=== PATIENT | female | born 1955 | race Caucasian/White ===

== ENCOUNTER 2019-08-09 18:29 | Inpatient (IN) | payer MEDICAID, SELFPAY ==
[2019-08-09 18:31] VITALS: BP 92/68; PULSE 96; RESP 16; TEMP 36.4; O2SAT 96; BMI 52.7
--- NOTE | 2019-08-09 18:33 | XR_ITS ---
WS: [id number] CHEST XRAY TECHNIQUE: Portable chest. CLINICAL INFORMATION: fever COMPARISON: None. FINDINGS: Heart: Cardiomegaly. Shallow inspiration. Lungs: Lungs are clear. No consolidation or pleural effusion. Bones: Normal visualized bony structures. Cholecystectomy clips. XR/XR chest 1V portable [id number] IMPRESSION: Cardiomegaly. No acute parenchymal infiltrates. No acute chest findings.
--- NOTE | 2019-08-09 18:46 | ED_ITS ---
HPI - Altered Mental Status General: Chief Complaint: Altered Mental Status Stated Complaint: ams Time Seen by Provider: 08/09/19 18:33 Source: patient and EMS Mode of arrival: EMS Limitations: no limitations History of Present Illness: HPI narrative: 64-year-old female here from [facility]pc in [facility]. Per the fpc patient has a normal mental status of a 10-year-old and typically is orientated to self and place. Per fpc patient was diagnosed with UTI 1 week ago and has had low blood pressures today along with generalized weakness and refusing to get out of bed. They states she is also had mood swings. Patient here is able answer my questions appropriately and seems to be at her baseline and is oriented to self and place and disoriented to time which is her normal. Her blood pressure here is 92/68. Denies any abdominal pain or headache. Review of Systems Const: Denies: fever(s), chills, body aches or change in appetite Eyes: Denies: blurry vision or eye discomfort ENMT: Denies: throat pain or dental pain Card: Denies: chest pain Resp: Denies: dyspnea GI: Denies: abdominal pain, nausea, vomiting or diarrhea : Denies: dysuria Musc: Denies: neck pain or back pain Skin/Breast: Denies: rash Neuro: Reports: weakness in extremities Psych: Reports: mood swings Carl/Lymph: Denies: easy bruising All/Imm: Denies: urticaria PFSH ED PFSH: Social History Smoking and tobacco status: unknown if ever smoked Physical Exam Const: COMMON NORMALS: no acute distress NUTRITIONAL APPEARANCE: obese ORIENTATION/CONSCIOUSNESS: Yes oriented to person and Yes oriented to place; not oriented to time HENMT: COMMON NORMALS: normocephalic and atraumatic HEAD & SCALP: normocephalic and atraumatic Eye: COMMON NORMALS: Equal, round and reactive pupils present and EOMs intact bilaterally PUPIL: Yes Equal, round and reactive pupils present Neck/C-Spine: COMMON NORMALS: full ROM and supple Chest: COMMONS NORMALS: normal inspection of the chest and normal palpation of entire chest wall Resp: COMMON NORMALS: normal respiratory effort, No retractions, No use of accessory muscles and clear to auscultation bilaterally AUSCULTATION: clear to auscultation bilaterally Cardio: COMMON NORMALS: regular rate, regular rhythm and No murmurs present (Cardio) RATE: regular rate RHYTHM: regular rhythm GI: COMMON NORMALS: Normal to inspection, nondistended, normoactive bowel sounds present, Soft to palpation, non-tender and no masses PALPATION: Yes Soft to palpation Extremity: COMMON NORMALS: normal to inspection and full ROM Neuro: COMMON NORMALS: moves all extremities and no focal motor deficits SENSORIUM/ORIENTATION: Yes oriented to person, Yes oriented to place and No oriented to time Psych: COMMON NORMALS: mental status grossly normal, Normal thought process present and cooperative THOUGHT PROCESS: Normal thought process present Skin: COMMON NORMALS: no rashes or lesions noted and no wounds GENERAL SKIN EXAM: no rashes or lesions noted Course Vital Signs: Vital signs: Vital Signs Temperature 97.6 F 08/09/19 18:31 Pulse Rate 118 H 08/09/19 20:07 Respiratory Rate 16 08/09/19 20:07 Blood Pressure 109/80 08/09/19 20:07 Pulse Oximetry 99 08/09/19 20:07 MDM - Altered Mental Status MDM Narrative: Medical decision making narrative: Patient presents here with acute cystitis from [facility]. She is failed treatment there. Patient was slightly hypotensive upon arrival but blood pressure is much improved here. Patient given IV antibiotics. Patient's lactate level here is normal is no signs of sepsis. I spoke to hospitalist and will admit at this time. Lab Data: Labs: Lab Results 08/09/19 08/09/19 08/09/19 Range/Units 19:17 19:17 19:17 WBC 8.9 (4.0-10.0) 10^3/ uL RBC 3.14 L (4.1-5.3) 10^6/u L Hgb 10.2 L (11.5-15.3) g/dL Hct 31.6 L (37.0-47.0) % MCV 100.6 H (81-99) fL MCH 32.5 (28.0-34.0) pg MCHC 32.3 (30.0-36.0) g/dL RDW 15.6 H (12.1-15.1) % Plt Count 212 (130-400) 10^3/c mm MPV 11.7 H (7.4-10.4) fL Neut % (Auto) 53.5 % Lymph % (Auto) 26.7 % Mineral % (Auto) 17.3 % Eos % (Auto) 0.7 % Baso % (Auto) 0.1 % Neut # (Auto) 4.7 (1.8-7.7) 10^3/u L Lymph # (Auto) 2.4 (0.8-4.8) 10^3/u L Mineral # (Auto) 1.5 H (0.2-0.9) 10^3/u L Eos # (Auto) 0.1 (0.0-0.8) 10^3/u L Baso # (Auto) 0.0 (0.0-0.1) 10^3/u L Nucleated RBC % (a uto) 0 % Nucleated RBCs # 0.0 /100WBC Sodium 138 (136-145) mmol/L Potassium 4.6 (3.5-5.1) mmol/L Chloride 101 (98-107) mmol/L Carbon Dioxide 22 (22-29) mmol/L Anion Gap 19.6 H (5-19) BUN 33 H (8-23) mg/dL Creatinine 2.3 H (0.5-0.9) mg/dL GFR Calculation 21.3 L (90-130) mL/min Glucose 146 H (65-115) mg/dL Calculated Osmolal ity 286 (285-295) mOsm/k g Lactate 2.1 (0.5-2.2) mmol/L Calcium 9.1 (8.5-10.5) mg/dL Total Bilirubin 0.2 (0.15-1.2) mg/dL AST 16 (0-32) U/L ALT 10 (0-33) U/L Alkaline Phosphata se 71 (35-105) IU/L Total Protein 6.3 L (6.6-8.7) g/dL Albumin 3.2 L (3.5-5.2) g/dL Globulin 3.1 (1.3-4.6) g/dL Urine Color (Yellow) Urine Appearance (CLEAR) Urine pH (5-7) Ur Specific Gravit y (1.005-1.030) Urine Protein (Negative) Urine Glucose (UA) (Normal) Urine Ketones (Negative) Urine Blood (Negative) Urine Nitrate (Negative) Urine Bilirubin (NEGATIVE) Urine Urobilinogen (Negative) mg/dL Ur Leukocyte Delfina ase (Negative) Urine RBC (0-2) /hpf Urine WBC (0-5) /hpf Ur Squamous Epith Cells (0-5) Urine Bacteria (NONE) 08/09/19 Range/Units 20:00 WBC (4.0-10.0) 10^3/ uL RBC (4.1-5.3) 10^6/u L Hgb (11.5-15.3) g/dL Hct (37.0-47.0) % MCV (81-99) fL MCH (28.0-34.0) pg MCHC (30.0-36.0) g/dL RDW (12.1-15.1) % Plt Count (130-400) 10^3/c mm MPV (7.4-10.4) fL Neut % (Auto) % Lymph % (Auto) % Mineral % (Auto) % Eos % (Auto) % Baso % (Auto) % Neut # (Auto) (1.8-7.7) 10^3/u L Lymph # (Auto) (0.8-4.8) 10^3/u L Mineral # (Auto) (0.2-0.9) 10^3/u L Eos # (Auto) (0.0-0.8) 10^3/u L Baso # (Auto) (0.0-0.1) 10^3/u L Nucleated RBC % (a uto) % Nucleated RBCs # /100WBC Sodium (136-145) mmol/L Potassium (3.5-5.1) mmol/L Chloride (98-107) mmol/L Carbon Dioxide (22-29) mmol/L Anion Gap (5-19) BUN (8-23) mg/dL Creatinine (0.5-0.9) mg/dL GFR Calculation (90-130) mL/min Glucose (65-115) mg/dL Calculated Osmolal ity (285-295) mOsm/k g Lactate (0.5-2.2) mmol/L Calcium (8.5-10.5) mg/dL Total Bilirubin (0.15-1.2) mg/dL AST (0-32) U/L ALT (0-33) U/L Alkaline Phosphata se (35-105) IU/L Total Protein (6.6-8.7) g/dL Albumin (3.5-5.2) g/dL Globulin (1.3-4.6) g/dL Urine Color Yellow (Yellow) Urine Appearance Cloudy (CLEAR) Urine pH 5 (5-7) Ur Specific Gravit y 1.015 (1.005-1.030) Urine Protein Trace (Negative) Urine Glucose (UA) Norm (Normal) Urine Ketones 1+ H (Negative) Urine Blood 3+ H (Negative) Urine Nitrate Negative (Negative) Urine Bilirubin Neg (NEGATIVE) Urine Urobilinogen Norm (Negative) mg/dL Ur Leukocyte Delfina ase 2+ H (Negative) Urine RBC 15-25 H (0-2) /hpf Urine WBC 55-80 H (0-5) /hpf Ur Squamous Epith Cells 0-4 H (0-5) Urine Bacteria 4+ H (NONE) Imaging Data^: CXR: Attestation: I personally reviewed and interpreted this imaging study as follows: My impression: no acute abnormality CT Head: Attestation: I personally reviewed and interpreted this imaging study as follows: Radiologist's impression: Signed Patient: Tori Rand Unit #: [id number] : 1955 Acc t#:[id number] Age/Sex: 64 / F ADM Date: 08/09/19 Loc: ER Room/Bed: Attending Dr: Ordering Provider/Ordering MD: Fady Cantu MD Date of Service: 08/09/19 Procedure(s): CT head wo con* [id number] Accession Number(s): [id number] Report Number: [id number] PROCEDURE INFORMATION: Exam: CT Head Without Contrast Exam date and time: 08/09/2019 7:39 PM Age: 64 years old Clinical indication: Altered mental status/memory loss; Additional info: Injury TECHNIQUE: Imaging protocol: Computed tomography of the head without contrast. Radiation optimization: All CT scans at this facility use at least one of these dose optimization techniques: automated exposure control; mA and/or kV adjustment per patient size (includes targeted exams where dose is matched to clinical indication); or iterative reconstruction. COMPARISON: No relevant prior studies available. FINDINGS: Large area of low-density in right occipital lobe is most compatible with subacute to old infarction; in the peripheral portion of this abnormality there are serpentine areas of increased density which are most compatible with sequela of laminar necrosis. There is prominent low density in the bilateral periventricular white matter which may represent chronic small vessel ischemic disease in the appropriate clinical setting. The possibility of superimposed acute infarctions cannot be excluded; consider MRI brain (including diffusion images) for further assessment if clinically warranted and if patient has no contraindication to MRI. There are prominent intracranial arterial calcifications. There is moderate cerebral cortical volume loss. Ventricles do not appear significantly dilated. No depressed calvarial fracture is demonstrated. Prominent opacification in visualized left mastoid air cells and left middle ear cavity may indicate fluid from inflammation/infection. Visualized paranasal sinuses and right mastoid air cells demonstrate no significant opacification. CT/CT head wo con* [id number] IMPRESSION: Probable prominent chronic ischemic changes as discussed above. Prominent opacification in visualized left mastoid air cells and left middle ear cavity may indicate fluid from inflammation/infection. Total DLP: 744.23 mGy-cm Discharge Plan Discharge Patient Disposition: Admitted As Inpatient Clinical Impression: Acute cystitis Qualifiers: Hematuria presence: without hematuria Qualified Code(s): N30.00 - Acute cystitis without hematuria Condition: Stable Coding Level of Care Code ED [employer] Deputy [employer] for [employer] Fwd Exam Comprehensive
[2019-08-09 18:49] VITALS: BP 92/68; PULSE 98; RESP 18; O2SAT 99
--- NOTE | 2019-08-09 19:14 | CTR_ITS ---
PROCEDURE INFORMATION: Exam: CT Head Without Contrast Exam date and time: 08/09/2019 7:39 PM Age: 64 years old Clinical indication: Altered mental status/memory loss; Additional info: Injury TECHNIQUE: Imaging protocol: Computed tomography of the head without contrast. Radiation optimization: All CT scans at this facility use at least one of these dose optimization techniques: automated exposure control; mA and/or kV adjustment per patient size (includes targeted exams where dose is matched to clinical indication); or iterative reconstruction. COMPARISON: No relevant prior studies available. FINDINGS: Large area of low-density in right occipital lobe is most compatible with subacute to old infarction; in the peripheral portion of this abnormality there are serpentine areas of increased density which are most compatible with sequela of laminar necrosis. There is prominent low density in the bilateral periventricular white matter which may represent chronic small vessel ischemic disease in the appropriate clinical setting. The possibility of superimposed acute infarctions cannot be excluded; consider MRI brain (including diffusion images) for further assessment if clinically warranted and if patient has no contraindication to MRI. There are prominent intracranial arterial calcifications. There is moderate cerebral cortical volume loss. Ventricles do not appear significantly dilated. No depressed calvarial fracture is demonstrated. Prominent opacification in visualized left mastoid air cells and left middle ear cavity may indicate fluid from inflammation/infection. Visualized paranasal sinuses and right mastoid air cells demonstrate no significant opacification. CT/CT head wo con* [id number] IMPRESSION: Probable prominent chronic ischemic changes as discussed above. Prominent opacification in visualized left mastoid air cells and left middle ear cavity may indicate fluid from inflammation/infection. Total DLP: 744.23 mGy-cm Radiation Dose CTDIVOL = (mGy): DLP = 744.23 (mGy-cm)
[2019-08-09 19:26] LABS: Basophils % 0.1 %; Eosinophils # 0.1 10^3/uL (0.0-0.8); Eosinophils % 0.7 %; Hematocrit 31.6 % (37.0-47.0); Hemoglobin 10.2 g/dL (11.5-15.3); Lymphocytes # 2.4 10^3/uL (0.8-4.8); Lymphocytes % 26.7 %; Mean Corpuscular HGB Conc 32.3 g/dL (30.0-36.0); Mean Corpuscular Hemoglobin 32.5 pg (28.0-34.0); Mean Corpuscular Volume 100.6 fL (81-99); Mean Platelet Volume 11.7 fL (7.4-10.4); Monocytes # 1.5 10^3/uL (0.2-0.9); Monocytes % 17.3 %; Neutrophils # 4.7 10^3/uL (1.8-7.7); Neutrophils % 53.5 %; Nucleated Red Blood Cells % 0 %; Platelet Count 212 10^3/cmm (130-400); Red Blood Count 3.14 10^6/uL (4.1-5.3); Red Cell Distribution Width 15.6 % (12.1-15.1); White Blood Count 8.9 10^3/uL (4.0-10.0)
[2019-08-09] MEDS: sodium chloride 0.9% 1,000 ML 999 ML IV (19:28)
[2019-08-09 19:47] LABS: Lactate (Lactic Acid level) 2.1 mmol/L (0.5-2.2)
[2019-08-09 19:48] LABS: Alanine Aminotransferase 10 U/L (0-33); Albumin Level 3.2 g/dL (3.5-5.2); Alkaline Phosphatase 71 IU/L (35-105); Anion Gap 19.6 (5-19); Aspartate Amino Transferase 16 U/L (0-32); Blood Urea Nitrogen 33 mg/dL (8-23); Calcium 9.1 mg/dL (8.5-10.5); Carbon Dioxide 22 mmol/L (22-29); Chloride 101 mmol/L (98-107); Creatinine Clr Calc Pharmacy 29.7597; Globulin 3.1 g/dL (1.3-4.6); Glomerular Filtration Rate 21.3 mL/min (90-130); Glucose 146 mg/dL (65-115); Osmolality Calculated 286 mOsm/kg (285-295); Potassium 4.6 mmol/L (3.5-5.1); Sodium 138 mmol/L (136-145); Total Bilirubin 0.2 mg/dL (0.15-1.2); Total Protein 6.3 g/dL (6.6-8.7)
[2019-08-09 20:07] VITALS: BP 109/80; PULSE 118; RESP 16; O2SAT 99
[2019-08-09 21:12] LABS: Glucose Urine UA Norm (Normal); Protein Urine Trace (Negative); Specific Gravity, Urine 1.015 (1.005-1.030); Urine Appearance Cloudy (CLEAR); Urine Color Yellow (Yellow); pH Urine 5 (5-7)
[2019-08-09 21:13] LABS: Add Urine Microscopic? YES; Bilirubin Urine Neg (NEGATIVE); Blood Urine 3+ (Negative); Ketones Urine 1+ (Negative); Leukocyte Esterase Urine 2+ (Negative); Nitrate Urine Negative (Negative); Urobilinogen Urine Norm (Negative)
[2019-08-09 21:19] LABS: Add Urine Culture? No; Bacteria Urine 4+; RBC Urine 15-25 /hpf (0-2); Squamous Epithelial Cell Urine 0-4 (0-5); WBC Urine 55-80 /hpf (0-5)
[2019-08-09] MEDS: cefTRIAXone 1,000 MG in sodium chloride 0.9% (plus) 50 ML 100 MG IV (21:41)
[2019-08-09 23:09] VITALS: BP 108/66; PULSE 108; RESP 16
[2019-08-09 23:29] VITALS: BP 108/66; PULSE 98; RESP 16; O2SAT 98
[2019-08-10 00:07] VITALS: BP 107/53; PULSE 88; RESP 20; TEMP 36.7; O2SAT 100
--- NOTE | 2019-08-10 00:45 | P.HP_ITS ---
Providers/Chief Complaint Admitting Physician: Padmini Wilkerson MD Chief Complaint: ACUTE CYSTITIS History of Present Illness History is obtained by talking to nurse at part of the [facility] in [facility]. Patient has been a long-term resident there since at least 2017.. Tori Rand is a 64 year old female with a past medical history of CVA, vascular dementia, bladder incontinence bedbound, insulin-dependent diabetes mellitus, major depressive disorder, obesity, hypertension, right-sided hemiplegia, dysphagia. She is transferred today from assisted with a history that over the past week she has been noted to be increasingly disoriented at the facility. She is usually alert awake and oriented, however over the past week she has had episodic confusion and disorientation. UA was tested at the assisted on 08/03 and showed positive leuk esterase, numerous white blood cells. She was started on empiric treatment with Bactrim. Cultures returned August 06 with E. coli that was Bactrim resistant. She was then started on nitrofurantoin 2 days ago, however this did not result in improvement in symptoms. UA upon admission continues to have multiple WBCs and positive leuk esterase and nitrite. Other notable results or a rising creatinine, this was 1.9 on August 03 with a previous baseline of 0.9. Today it is at 2.3. Electrolytes have been normal. Sodium ranging between 1 39-1 41. Fingersticks have been well controlled. LFTs were within normal range. White blood cell count was 7. It continues to be 8 here. Urine culture 08/06 shows E. coli that is susceptible to Augmentin, cefazolin, ceftriaxone and all carbapenems. It is resistant to Bactrim and fluoroquinolones. CT head is without any acute abnormalities, shows chronic ischemic mahsa as left mastoid air cells fluid of unclear chronicity. She has been afebrile. No other complaints of abdomen or back pain. Not noted to have any cough, dyspnea, chest pain. Review of Systems General: Reports: 10 or more systems reviewed and unremarkable except in HPI and below Narrative: Of note, obtained from RN at [place]. Patient unable to tell me Const: Denies: fever(s), chills or body aches Eyes: Denies: change in vision, blurry vision or photophobia ENMT: Reports: hoarseness; Denies: throat pain, enlarged tonsils, odynophagia or nasal congestion Card: Denies: chest pain, palpitations, irregular heart rhythm, edema, swelling of feet/ankles, lightheadedness, pre-syncope, dyspnea on exertion or orthopnea Resp: Denies: dyspnea, productive cough, non-productive cough, wheezing, stridor, pain on inspiration, change in phlegm color, hemoptysis or chest congestion GI: Denies: abdominal pain, nausea, vomiting, hematemesis, coffee ground emesis, dysphagia, heartburn, diarrhea, constipation, GI cramping, change in stool character, hematochezia or melena : Denies: flank pain, difficulty voiding, dysuria, urinary frequency, urinary urgency, urinary hesitancy or hematuria Musc: Denies: neck pain, back pain, extremity pain, joint swelling, joint warmth or deformity Neuro: Denies: headache(s), numbness in extremities, weakness in extremities, sensory changes, difficulty walking, frequent falls, dizziness, vertigo, behavioral changes, Slurred speech present or seizure-like activity Psych: Denies: anxiety, depression, suicidal ideation or homicidal ideation Endo: Denies: polyuria, polydipsia, tired all the time, cold intolerance or hot flashes Carl/Lymph: Denies: easy bruising or easy bleeding Medications/Allergies Home Medications Medication Instructions Recorded Confirmed Last Taken Type permethrin See Rx Instructions .ROUTE .COMPLEX 08/09/19 08/09/19 Unknown History Allergies Allergy/AdvReac Type Severity Reaction Status Date / Time aspirin Allergy Unknown Verified 08/09/19 18:46 lisinopril Allergy Unknown Verified 08/09/19 18:46 Penicillins Allergy Unknown Verified 08/09/19 18:46 PFSH Acute PFSH: Medical History (Updated 08/10/19 @ 01:02 by Padmini Wilkerson MD) Carpal tunnel syndrome CVA (cerebral vascular accident) Diabetes mellitus Dysphagia as late effect of cerebrovascular disease Hypertension Insomnia Intracardiac thrombosis Major depression Obesity Right hemiplegia Vascular dementia Social History Smoking and tobacco status: unknown if ever smoked Vitals/I&O/Wt Last Vital Signs Temp 97.6 F 08/09/19 18:31 Pulse 98 08/09/19 23:29 Resp 16 08/09/19 23:29 BP 108/66 08/09/19 23:29 Pulse Ox 98 08/09/19 23:29 08/09/19 08/09/19 08/10/19 14:59 22:59 06:59 Intake Total 1050 / 1050 Balance 1050 / 1050 Weight last 48 hrs Weight 122.47 kg Physical Exam Narrative: EXAM NARRATIVE: GEN: Awake, confused, oriented x 1, garcia snot realise she is in the hospital, calls out fo rher and states that she will call to make his appointments. States she is in pain but cannot localize site for me HEENT: pupils NSNR CVS: S1S2 N RS: CTA B/L Abd: Soft, nt/nd , bs+ , no CVA tenderness CLIENT ADMINISTRATOR: consufsed, disoriented, lying in bed, moves B?L upper exemities in bed SKIN: no rashes Data : 08/09/19 19:17 08/09/19 19:17 Micro: Microbiology 08/09/19 19:10 Blood Culture - Preliminary Blood SPECIMEN COLLECTED 08/09/19 19:17 Blood Culture - Preliminary Blood SPECIMEN COLLECTED A&P Assessment and plan (1) Urinary tract infection: Status: Acute (2) MELY (acute kidney injury): Status: Acute (3) Metabolic encephalopathy: Status: Acute (4) Diabetes mellitus: Status: Acute (5) Hypertension: Status: Acute (6) Vascular dementia: Status: Acute (7) Major depression: Status: Acute Additional A&P Information Admit to med/surg 1. Urinary tract infection - Per history appears to be acute cystitis, with outpatient empiric antibioic failure. e.coli isolate resistant to bactrim which was initially used. Nitrofurantoin may not be active in the presence of ongoing MELY and if there is posisbility of ascending infection. concomitatnt MELY may be related to bactrim use, however given that cr increasing since 08/03, prior to bactrim use, may point to obtructive uropathy Check CT KUB to evaluate for obstruction. Bladder scan and Juarez cath as needed Monitor urine output Iv hydration with NS @ 75cc/hr Ceftriaxone 1 iv q24h for E.coli based on susceptibility data 2. Altered mental status likely from metabolic encepalopathy. Underlying dementia likely contributing Continue zyprexa BID 3. MELY : as above. Imaging and hydration for now 4. Insulin dependent DM: Insulin sliding scale for now 5. HTN: continue home medications Dvt ppx: lovenox Full code Attestations Medical Necessity Statement*: anticipate >2midnight admission for management of UTI, AMS, MELY, evaluation for obstructive uropathy Coding Level of Care Code Acute Workers Compensation Attorney for [facility] Fwd Diagnoses Urinary tract infection N39.0 MELY (acute kidney injury) N17.9 Metabolic encephalopathy G93.41 Diabetes mellitus E11.9 Hypertension I10 Vascular dementia F01.50 Major depression F32.9
[2019-08-10] MEDS: OLANZapine 10 mg VIAL 5 MG IM (01:47)
[2019-08-10] MEDS: sodium chloride 0.9% 1,000 ML 75 ML IV ×2 (01:54→10:01)
[2019-08-10 03:11] LABS: Thyroid Stimulating Hormone 3.11 uIU/mL (0.27-4.20)
[2019-08-10 03:12] LABS: Alanine Aminotransferase 9 U/L (0-33); Albumin Level 3.4 g/dL (3.5-5.2); Alkaline Phosphatase 68 IU/L (35-105); Anion Gap 21.7 (5-19); Aspartate Amino Transferase 17 U/L (0-32); Blood Urea Nitrogen 35 mg/dL (8-23); Carbon Dioxide 22 mmol/L (22-29); Chloride 102 mmol/L (98-107); Creatinine Clr Calc Pharmacy 29.7597; Globulin 2.5 g/dL (1.3-4.6); Glomerular Filtration Rate 21.3 mL/min (90-130); Glucose 116 mg/dL (65-115); Osmolality Calculated 290 mOsm/kg (285-295); Potassium 4.7 mmol/L (3.5-5.1); Sodium 141 mmol/L (136-145); Total Bilirubin 0.2 mg/dL (0.15-1.2); Total Protein 5.9 g/dL (6.6-8.7)
[2019-08-10 04:00] VITALS: BP 81/45; PULSE 84; RESP 18; TEMP 36.8; O2SAT 96
--- NOTE | 2019-08-10 06:00 | CT_ITS ---
WS: [id number] CT ABDOMEN PELVIS TECHNIQUE: Noncontrast CT of the abdomen and pelvis with coronal and sagittal reformatted images. CLINICAL INFORMATION: evaluate for obstruction COMPARISON: None. DLP: 1169.[address] scans at [facility] use at least one of these dose optimization techniques: automat ed exposure control; mA and/or kV adjustment per patient size (includes targeted exams where dose is matched to clinical indication); or iterative reconstruction. FINDINGS: Noncontrast liver is normal. Prior cholecystectomy. Small esophageal hiatal hernia. Subsegmental atel ectasis in the lung bases. Vascular calcification. Splenic artery calcification. Normal caliber abdom inal aorta. Adrenal glands are normal. No hydronephrosis in either kidney.Ureters are decompressed. No obstructing renal or ureteral calculi. Noncontrast pancreas appears unremarkable. No periaortic or retroperitoneal lymphadenopathy. Normal sigmoid colon. No evidence of small or large bowel obstruction. Mild lumbar scoliosis. Spondyl itic changes lumbar spine. CT/CT kidney stone [id number] IMPRESSION: 1. No hydronephrosis. No obstructing renal or ureteral calculi. 2. No acute abdominal or pelvic findings. 3. Normal caliber abdominal aorta. 4. Prior cholecystectomy. 5. Subsegmental atelectasis in the lung bases.
[2019-08-10 06:25] LABS: Glucose Point of Care 102 mg/dL (70-110)
[2019-08-10 07:06] VITALS: BP 134/64; PULSE 95; RESP 18; TEMP 36.9; O2SAT 95
--- NOTE | 2019-08-10 09:57 | PC.CHAP ---
Pastoral Care Encounter/Spiritual Assessment Type of Contact [] Declined flarer visit [] Patient/Family/Request visit [] Outpatient visit [] Follow-up visit [] Physician referral [] Code/Alert [x] Routine visit [] Staff referral [] Actively dying [] Patient sleeping [] Family support [] [x] Out of room [] Palliative care [] [] Receiving care in room [] Pre-surgical visit [] Trauma [] Long length of stay [] ICU visit [] Other: Relational/Emotional Strength [] Patient feels connected with others/family/visitors/staff [] Distress [] Loneliness/isolation [] Abandonment Spirituality of Patient [] Person of Mahogany [] Attends Druze of their Mahogany [] Believes in Prayer [] Reads Bible or Hindu materials [] There are Spiritual issues to be addressed Press Secretary Interventions [] Prayer [] Active listening [] Non-anxious presence [] Spiritual/emotional support [] Crisis/trauma care [] Spiritual counseling [] Bereavement support [] Provided bereavement packet [] Provided Bible/devotional materials [] Provided toy/stuffed animal, coloring book to patient or family member [] Provided Communion [] Anointing/[place] [] Salvation [x] Completed spiritual assessment [] Other: Impact on Illness or Injury [] Angry [] Fearful [] Anxious [] Often cries [] Exhaustion [] Unable to work [] Unable to attend zoroastrian [] Unable to walk/stand [] Unable to read [] Unable to drive [] Unable to eat/drink [] Unable to sleep [] Unable to be with family [] Patient intubated [] Other: Summary Patient out of room for testing..being moved to room 273 afterwards. Time spent with patient
[2019-08-10] MEDS: divalproex DR 500 mg Tablet PO ×2 (10:02→18:08)
[2019-08-10] MEDS: apixaban 5 mg Tablet PO ×2 (10:03→18:09)
[2019-08-10] MEDS: pantoprazole DR 40 mg Tablet PO (10:03)
[2019-08-10] MEDS: OLANZapine 5 mg TABLET PO ×2 (10:05→18:08)
[2019-08-10 12:00] VITALS: BP 123/74; PULSE 88; RESP 18; TEMP 37.2; O2SAT 92
--- NOTE | 2019-08-10 13:13 | PM.PN ---
Subjective Subjective: Interval history: Chart reviewed, due to increased confusion, moved to private room and sitter requested. Hemodynamically stable, afebrile. Sleeping comfortably, sitter at bedside, has been calm throughout the day. Medications: Reviewed: Yes Medication Review Details: Active Medications Generic Name Dose Route Start Last Admin Trade Name Freq PRN Reason Stop Dose Admin Acetaminophen 650 mg 08/10/19 01:12 Tylenol PO Q6H PRN Mild/Mod Pain Or Temp >/= 101 Hydrocodone Bitart /Acetaminophen 1 tab 08/10/19 01:18 [place] 5-325 Mg PO Q6H PRN MODERATE PAIN Apixaban 5 mg 08/10/19 09:00 08/10/19 10:03 Eliquis PO 5 mg BID MAMTA Administration Atorvastatin Calci um 80 mg 08/10/19 21:00 Lipitor PO BEDTIME MAMTA Bisacodyl 10 mg 08/10/19 01:18 Dulcolax PO DAILY PRN CONSTIPATION Dextrose 25 ml 08/10/19 01:18 D50w IVP ONCE PRN hypoglycemia prot ocol Protocol Dextrose 50 ml 08/10/19 01:18 D50w IVP PRN PRN hypoglycemia prot ocol Protocol Divalproex Sodium 500 mg 08/10/19 09:00 08/10/19 10:[address] PO 500 mg BID MAMTA Administration Glucagon 1 mg 08/10/19 01:18 Glucagen IM ONCE PRN Adult Acute Hypog lycemia Prot. Protocol Sodium Chloride 1,000 mls @ 75 ml s/hr 08/10/19 01:15 08/10/19 10:01 Sodium Chloride 0.9% IV 75 mls/hr .[id number] MAMTA Administration Dextrose 500 mls @ 100 mls /hr 08/10/19 01:18 D5w IV ONCE PRN Adult Acute Hypog lycemia Prot Protocol Ceftriaxone Sodium 1,000 mg/ 50 mls @ 100 mls/ hr 08/10/19 21:30 Sodium Chloride IV Q24H MAMTA Protocol Insulin Aspart 0 unit 08/10/19 08:00 08/10/19 12:31 Novolog SUBCUT Not Given WM&BEDTIME MAMTA Protocol Nitroglycerin 0.4 mg 08/10/19 01:18 Nitrostat SUBLINGUAL Q5M PRN CHEST PAIN Olanzapine 5 mg 08/10/19 09:00 08/10/19 10:05 Zyprexa PO 5 mg BID MAMTA Administration Ondansetron HCl 4 mg 08/10/19 01:12 Zofran IVP Q8H PRN vomiting, or N/V if npo Pantoprazole Sodiu m 40 mg 08/10/19 09:00 08/10/19 10:03 Protonix PO 40 mg DAILY MAMTA Administration aspirin Allergy (Verified 08/09/19 18:46) Unknown lisinopril Allergy (Verified 08/09/19 18:46) Unknown Penicillins Allergy (Verified 08/09/19 18:46) Unknown Vitals/I&O/Wt Last Vital Signs Temp 98.9 F 08/10/19 12:00 Pulse 88 08/10/19 12:00 Resp 18 08/10/19 12:00 BP 123/74 08/10/19 12:00 Pulse Ox 92 08/10/19 12:00 08/09/19 08/10/19 08/10/19 22:59 06:59 14:59 Intake Total 1050 / 1050 608.75 / 608.75 Balance 1050 / 1050 608.75 / 608.75 Weight last 48 hrs Weight 122.47 kg Physical Exam Const: COMMON NORMALS: no acute distress GENERAL APPEARANCE: cooperative and comfortable NUTRITIONAL APPEARANCE: obese morbidly obese OTHER: -sleeping comfortably in bed HENMT: COMMON NORMALS: normocephalic, atraumatic, hearing grossly normal bilaterally and moist oral mucous membranes HEAD & SCALP: normocephalic and atraumatic TEETH & GINGIVA: Yes edentulous Eye: COMMON NORMALS: Equal, round and reactive pupils present, EOMs intact bilaterally and conjunctivae normal CONJUNCTIVA: Yes conjunctivae normal PUPIL: Yes Equal, round and reactive pupils present Neck/C-Spine: COMMON NORMALS: full ROM GENERAL: Yes normal visual inspection and Yes trachea midline OTHER: -short, thick neck Resp: COMMON NORMALS: normal respiratory effort, No retractions, No use of accessory muscles and clear to auscultation bilaterally EFFORT & INSPECTION: Yes able to speak in complete sentences, Yes symmetric chest movement and No tachypneic AUSCULTATION: clear to auscultation bilaterally Cardio: COMMON NORMALS: regular rate, regular rhythm, S1 normal heart sound present, S2 normal heart sound present and No murmurs present (Cardio) RATE: regular rate RHYTHM: regular rhythm HEART SOUNDS: S1 normal heart sound present and S2 normal heart sound present GI: COMMON NORMALS: Normal to inspection, nondistended, normoactive bowel sounds present, Soft to palpation and non-tender INSPECTION: Yes central obesity PALPATION: Yes Soft to palpation : BLADDER/KIDNEY EXAM: No catheter in place Extremity: COMMON NORMALS: normal to inspection, full ROM, no clubbing, cyanosis or edema and no pedal edema Neuro: COMMON NORMALS: moves all extremities, no focal motor deficits and no sensory deficits noted Psych: COMMON NORMALS: mental status grossly normal, Normal thought process present, cooperative and normal affect SPEECH: Yes Other speech symptoms (chronic dysphagia) THOUGHT PROCESS: Normal thought process present Skin: COMMON NORMALS: no jaundice, no petechiae and no mottling GENERAL SKIN EXAM: Excoriation (R-side of pannus, beneath bilateral breasts) Data : 08/09/19 19:17 08/10/19 02:10 Micro: Microbiology 08/09/19 19:10 Blood Culture - Preliminary Blood SPECIMEN COLLECTED 08/09/19 19:17 Blood Culture - Preliminary Blood SPECIMEN COLLECTED A&P Assessment and plan (1) Urinary tract infection: -Failed outpatient treatment with Bactrim, Macrobid -UA strongly indicative of infection -f/u blood and urine cx; previous cx from sample obtained at [facility] (08/06) grew E.coli (bactrim resistant) -continue Ceftriaxone -no leukocytosis, afebrile, lactic acid-2.1 -continue to monitor vital signs Status: Acute Qualifiers: Hematuria presence: without hematuria Urinary tract infection type: acute cystitis Qualified Code(s): N30.00 - Acute cystitis without hematuria (2) MELY (acute kidney injury): -concern for obstructive uropathy given noted worsening renal function -was on Bactrim but renal impairment present prior to initiation of therapy and was on it for just a few days -continue to monitor renal function -monitor urine output, Juarez catheter placement if noted urinary retention, worsening renal function -does have some degree of CKD at baseline, prior baseline Cr was around 0.9 Status: Acute (3) Metabolic encephalopathy: -noted acute metabolic encephalopathy likely due to acute cystitis and renal impairment -re-orient as needed, fall precautions, sitter -holding seroquel, zyprexa Status: Acute (4) Hypertension: -normotensive, continue to monitor vital signs -ARB on hold due to renal impairment Status: Chronic Qualifiers: Hypertension type: essential hypertension Qualified Code(s): I10 - Essential (primary) hypertension (5) Vascular dementia: Status: Chronic Qualifiers: Dementia behavioral disturbance: without behavioral disturbance Qualified Code(s): F01.50 - Vascular dementia without behavioral disturbance (6) Obesity: -BMI-53 kg/m2 Status: Chronic Qualifiers: Body mass index: BMI 50.0-59.9 Obesity classification: adult class 3 (BMI >= 40) Obesity type: unspecified obesity type Serious obesity comorbidity presence: unspecified whether serious comorbidity present Qualified Code(s): E66.01 - Morbid (severe) obesity due to excess calories; Z68.43 - Body mass index (BMI) 50.0-59.9, adult (7) Diabetes mellitus: Status: Acute Qualifiers: Diabetes mellitus complication status: without complication Diabetes mellitus custodial insulin use: with terminal press operator use Diabetes mellitus type: type 2 Qualified Code(s): E11.9 - Type 2 diabetes mellitus without complications; Z79.4 - senior care (current) use of insulin Additional A&P Information -has hx of prior CVA with dysphagia, left sided hemiparesis; aspiration precautions, on dysphagia diet -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 Time Spent in Patient Care: Greater than 35 minutes (>than 50% of time spent in counselling and/or direct pt care on unit). Coding Level of Care Code Acute Psych Nurse for [facility] Fwd Exam Comprehensive Diagnoses Urinary tract infection N30.00 Hematuria presence: without hematuria Urinary tract infection type: acute cystitis MELY (acute kidney injury) N17.9 Metabolic encephalopathy G93.41 Hypertension I10 Hypertension type: essential hypertension Vascular dementia F01.50 Dementia behavioral disturbance: without behavioral disturbance Obesity E66.01; Z68.43 Body mass index: BMI 50.0-59.9 Obesity classification: adult class 3 (BMI >= 40) Obesity type: unspecified obesity type Serious obesity comorbidity presence: unspecified whether serious comorbidity present Diabetes mellitus E11.9; Z79.4 Diabetes mellitus complication status: without complication Diabetes mellitus terminal press operator insulin use: with terminal press operator use Diabetes mellitus type: type 2
--- NOTE | 2019-08-10 13:39 | PC.PT ---
PT note; patient was screened for physical therapy evaluation, patient prison was contacted in [facility], nursing staff there report patient is Keo lift transfers and non- ambulatory for quite some time; therefore patient was determined to be inappropriate for PT evaluation, or treatment, due to requiring total assistance with all activities except eating. No further attempts at PT evaluation be made unless new orders are received. Discussed same with nursing staff
[2019-08-10 16:00] VITALS: BP 111/64; PULSE 81; RESP 16; TEMP 36.9; O2SAT 92
[2019-08-10 19:49] VITALS: BP 116/67; PULSE 83; RESP 20; TEMP 36.3; O2SAT 93
[2019-08-10 21:08] LABS: Glucose Point of Care 101 mg/dL (70-110)
[2019-08-10 21:08] LABS: Glucose Point of Care 109 mg/dL (70-110)
[2019-08-10 21:08] LABS: Glucose Point of Care 109 mg/dL (70-110)
[2019-08-10 21:08] LABS: Glucose Point of Care 109 mg/dL (70-110)
[2019-08-10] MEDS: cefTRIAXone 1,000 MG in sodium chloride 0.9% (plus) 50 ML 100 MG IV (22:12)
[2019-08-11] VITALS (7 sets, daily range): BP systolic 103–141; BP diastolic 52–79; PULSE 68–87; RESP 16–20; TEMP 36.3–36.7; O2SAT 90–96
[2019-08-11] MEDS: sodium chloride 0.9% 1,000 ML 75 ML IV ×2 (00:56→14:25)
[2019-08-11 05:22] LABS: Basophils % 0.1 %; Eosinophils # 0.1 10^3/uL (0.0-0.8); Eosinophils % 1.8 %; Hematocrit 26.9 % (37.0-47.0); Hemoglobin 8.8 g/dL (11.5-15.3); Lymphocytes # 2.3 10^3/uL (0.8-4.8); Lymphocytes % 34.2 %; Mean Corpuscular HGB Conc 32.7 g/dL (30.0-36.0); Mean Corpuscular Hemoglobin 32.6 pg (28.0-34.0); Mean Corpuscular Volume 99.6 fL (81-99); Mean Platelet Volume 11.5 fL (7.4-10.4); Monocytes % 14.6 %; Neutrophils # 3.2 10^3/uL (1.8-7.7); Neutrophils % 47.4 %; Nucleated Red Blood Cells % 0 %; Platelet Count 201 10^3/cmm (130-400); Red Cell Distribution Width 15.5 % (12.1-15.1); White Blood Count 6.8 10^3/uL (4.0-10.0)
[2019-08-11 05:45] LABS: Alanine Aminotransferase 8 U/L (0-33); Albumin Level 2.8 g/dL (3.5-5.2); Alkaline Phosphatase 59 IU/L (35-105); Anion Gap 15.1 (5-19); Aspartate Amino Transferase 16 U/L (0-32); Blood Urea Nitrogen 29 mg/dL (8-23); Calcium 8.9 mg/dL (8.5-10.5); Carbon Dioxide 21 mmol/L (22-29); Chloride 107 mmol/L (98-107); Globulin 2.6 g/dL (1.3-4.6); Glomerular Filtration Rate 30.3 mL/min (90-130); Glucose 119 mg/dL (65-115); Osmolality Calculated 286 mOsm/kg (285-295); Potassium 4.1 mmol/L (3.5-5.1); Sodium 139 mmol/L (136-145); Total Bilirubin 0.2 mg/dL (0.15-1.2); Total Protein 5.4 g/dL (6.6-8.7)
[2019-08-11 06:39] LABS: Glucose Point of Care 110 mg/dL (70-110)
[2019-08-11] MEDS: apixaban 5 mg Tablet PO ×2 (08:22→18:10)
[2019-08-11] MEDS: OLANZapine 5 mg TABLET PO ×2 (08:22→18:10)
[2019-08-11] MEDS: pantoprazole DR 40 mg Tablet PO (08:22)
[2019-08-11] MEDS: divalproex DR 500 mg Tablet PO ×2 (08:22→18:10)
[2019-08-11] MEDS: nystatin powder 15 gm Btl 1 APPLIC TOPICAL (08:35)
[2019-08-11 10:58] LABS: Glucose Point of Care 105 mg/dL (70-110)
--- NOTE | 2019-08-11 15:10 | P.PN_ITS ---
Subjective Subjective: Interval history: Improved renal function, will bring from 10.2- >8.8. Urine cultures so far growing 2 sets of gram-negative rods, blood cultures remain negative. Sitter at bedside, patient continues to spend much of her day asleep, reported to be awake throughout the night. Easily arousable, has not had much to eat today. She is incontinent. Medications: Reviewed: Yes Medication Review Details: Active Medications Generic Name Dose Route Start Last Admin Trade Name Freq PRN Reason Stop Dose Admin Acetaminophen 650 mg 08/10/19 01:12 Tylenol PO Q6H PRN Mild/Mod Pain Or Temp >/= 101 Hydrocodone Bitart /Acetaminophen 1 tab 08/10/19 01:18 [place] 5-325 Mg PO Q6H PRN MODERATE PAIN Apixaban 5 mg 08/10/19 09:00 08/11/19 08:22 Eliquis PO 5 mg BID MAMTA Administration Atorvastatin Calci um 80 mg 08/10/19 21:00 08/10/19 22:03 Lipitor PO Not Given BEDTIME MAMTA Bisacodyl 10 mg 08/10/19 01:18 Dulcolax PO DAILY PRN CONSTIPATION Dextrose 25 ml 08/10/19 01:18 D50w IVP ONCE PRN hypoglycemia prot ocol Protocol Dextrose 50 ml 08/10/19 01:18 D50w IVP PRN PRN hypoglycemia prot ocol Protocol Divalproex Sodium 500 mg 08/10/19 09:00 08/11/19 08:[address] PO 500 mg BID MAMTA Administration Glucagon 1 mg 08/10/19 01:18 Glucagen IM ONCE PRN Adult Acute Hypog lycemia Prot. Protocol Sodium Chloride 1,000 mls @ 75 ml s/hr 08/10/19 01:15 08/11/19 14:25 Sodium Chloride 0.9% IV 75 mls/hr .[id number] MAMTA Administration Dextrose 500 mls @ 100 mls /hr 08/10/19 01:18 D5w IV ONCE PRN Adult Acute Hypog lycemia Prot Protocol Ceftriaxone Sodium 1,000 mg/ 50 mls @ 100 mls/ hr 08/10/19 21:30 08/10/19 22:12 Sodium Chloride IV 100 mls/hr Q24H MAMTA Administration Protocol Insulin Aspart 0 unit 08/10/19 08:00 08/11/19 11:21 Novolog SUBCUT Not Given WM&BEDTIME [facility] Protocol Nitroglycerin 0.4 mg 08/10/19 01:18 Nitrostat SUBLINGUAL Q5M PRN CHEST PAIN Nystatin 1 applic 08/11/19 09:00 08/11/19 08:35 Nystatin Powder TOPICAL 1 gm BID MAMTA Administration Olanzapine 5 mg 08/10/19 09:00 08/11/19 08:22 Zyprexa PO 5 mg BID MAMTA Administration Ondansetron HCl 4 mg 08/10/19 01:12 Zofran IVP Q8H PRN vomiting, or N/V if npo Pantoprazole Sodiu m 40 mg 08/10/19 09:00 08/11/19 08:22 Protonix PO 40 mg DAILY MAMTA Administration aspirin Allergy (Verified 08/09/19 18:46) Unknown lisinopril Allergy (Verified 08/09/19 18:46) Unknown Penicillins Allergy (Verified 08/09/19 18:46) Unknown Vitals/I&O/Wt Last Vital Signs Temp 97.6 F 08/11/19 11:10 Pulse 87 08/11/19 11:10 Resp 18 08/11/19 11:10 BP 122/70 08/11/19 11:10 Pulse Ox 91 08/11/19 11:10 08/11/19 08/11/19 08/11/19 06:59 14:59 22:59 Intake Total 1000 / 1608.75 1120 / 1120 Balance 1000 / 1608.75 1120 / 1120 Weight last 48 hrs Weight 122.47 kg Physical Exam Const: COMMON NORMALS: no acute distress GENERAL APPEARANCE: cooperative and comfortable NUTRITIONAL APPEARANCE: obese morbidly obese ORIENTATION/CONSCIOUSNESS: Yes awake OTHER: -sleeping comfortably in bed HENMT: COMMON NORMALS: normocephalic, atraumatic, hearing grossly normal bilaterally and moist oral mucous membranes HEAD & SCALP: normocephalic and atraumatic TEETH & GINGIVA: Yes edentulous Eye: COMMON NORMALS: Equal, round and reactive pupils present, EOMs intact bilaterally and conjunctivae normal CONJUNCTIVA: Yes conjunctivae normal PUPIL: Yes Equal, round and reactive pupils present Neck/C-Spine: COMMON NORMALS: full ROM GENERAL: Yes normal visual inspection and Yes trachea midline OTHER: -short, thick neck Resp: COMMON NORMALS: normal respiratory effort, No retractions, No use of accessory muscles and clear to auscultation bilaterally EFFORT & INSPECTION: Yes able to speak in complete sentences, Yes symmetric chest movement and No tachypneic AUSCULTATION: clear to auscultation bilaterally Cardio: COMMON NORMALS: regular rate, regular rhythm, S1 normal heart sound present, S2 normal heart sound present and No murmurs present (Cardio) RATE: regular rate RHYTHM: regular rhythm HEART SOUNDS: S1 normal heart sound present and S2 normal heart sound present GI: COMMON NORMALS: Normal to inspection, nondistended, normoactive bowel sounds present, Soft to palpation and non-tender INSPECTION: Yes central obesity PALPATION: Yes Soft to palpation : BLADDER/KIDNEY EXAM: No catheter in place Extremity: COMMON NORMALS: normal to inspection, full ROM, no clubbing, cyanosis or edema and no pedal edema Neuro: COMMON NORMALS: moves all extremities, no focal motor deficits and no sensory deficits noted Psych: COMMON NORMALS: mental status grossly normal, Normal thought process present, cooperative and normal affect SPEECH: Yes Other speech symptoms (chronic dysphagia) THOUGHT PROCESS: Normal thought process present Skin: COMMON NORMALS: no jaundice, no petechiae and no mottling GENERAL SKIN EXAM: erythema (breast folds, worse on R) and Excoriation (R-side of pannus, beneath bilateral breasts) Data : 08/11/19 04:30 08/11/19 04:30 Micro: Microbiology 08/09/19 20:00 Urine Culture - Preliminary Urine Catheterized Gram Negative Rods Gram Negative Rods#2 08/09/19 19:10 Blood Culture - Preliminary Blood NEGATIVE TO DATE 08/09/19 19:17 Blood Culture - Preliminary Blood NEGATIVE TO DATE A&P Assessment and plan (1) Urinary tract infection: -Failed outpatient treatment with Bactrim, Macrobid -UA strongly indicative of infection -blood cx: prelim negative -urine cx; previous cx from sample obtained at [facility] (08/06) grew E.coli (bactrim resistant) -continue Ceftriaxone -no leukocytosis, afebrile, lactic acid-2.1 -continue to monitor vital signs Status: Acute Qualifiers: Hematuria presence: without hematuria Urinary tract infection type: acute cystitis Qualified Code(s): N30.00 - Acute cystitis without hematuria (2) MELY (acute kidney injury): -concern for obstructive uropathy given noted worsening renal function -was on Bactrim but renal impairment present prior to initiation of therapy and was on it for just a few days -continue to monitor renal function; improving with hydration and treatment of UTI -continue to monitor urine output, Juarez catheter placement if noted urinary retention, worsening renal function -does have some degree of CKD at baseline, prior baseline Cr was around 0.9 Status: Acute (3) Metabolic encephalopathy: -noted acute metabolic encephalopathy likely due to acute cystitis and renal impairment -re-orient as needed, fall precautions, sitter -holding seroquel, on zyprexa Status: Acute (4) Hypertension: -normotensive, continue to monitor vital signs -ARB on hold due to renal impairment Status: Chronic Qualifiers: Hypertension type: essential hypertension Qualified Code(s): I10 - Essential (primary) hypertension (5) Vascular dementia: Status: Chronic Qualifiers: Dementia behavioral disturbance: without behavioral disturbance Qualified Code(s): F01.50 - Vascular dementia without behavioral disturbance (6) Obesity: -BMI-53 kg/m2 Status: Chronic Qualifiers: Body mass index: BMI 50.0-59.9 Obesity classification: adult class 3 (BMI >= 40) Obesity type: unspecified obesity type Serious obesity comorbidity presence: unspecified whether serious comorbidity present Qualified Code(s): E66.01 - Morbid (severe) obesity due to excess calories; Z68.43 - Body mass index (BMI) 50.0-59.9, adult (7) Diabetes mellitus: Status: Acute Qualifiers: Diabetes mellitus complication status: without complication Diabetes mellitus medical terminologist insulin use: with senior living use Diabetes mellitus type: type 2 Qualified Code(s): E11.9 - Type 2 diabetes mellitus without complications; Z79.4 - terminologist (current) use of insulin Additional A&P Information -has hx of prior CVA with dysphagia, left sided hemiparesis; aspiration precautions, on dysphagia diet -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; on AC with Eliquis -Intertrigo: keep skin folds clean and dry, nystatin powder, interdry -GI ppx with PPI -DVT ppx not needed as on Eliquis -bed-bound, Keo lift at baseline -Dispo: return to [facility] the [facility] ([place]); per care home staff patient typically spends most of the day in bed, does get up for meals and frequently requires assistance with her meals, is on a mechanical soft diet is typically alert and oriented x3 -Code status: FULL code; has guardian Maryann Coleman Attestations Medical Necessity Statement*: Patient requires hospitalization for continued IV antibiotics and IV fluid hydration for treatment of UTI with associated obstructive uropathy. Time Spent in Patient Care: 16 - 35 minutes (>than 50% of time spent in counselling and/or direct pt care on unit) . Coding Level of Care Code Acute Circulation Man for [facility] Fwd Exam Comprehensive Diagnoses Urinary tract infection N30.00 Hematuria presence: without hematuria Urinary tract infection type: acute cystitis MELY (acute kidney injury) N17.9 Metabolic encephalopathy G93.41 Hypertension I10 Hypertension type: essential hypertension Vascular dementia F01.50 Dementia behavioral disturbance: without behavioral disturbance Obesity E66.01; Z68.43 Body mass index: BMI 50.0-59.9 Obesity classification: adult class 3 (BMI >= 40) Obesity type: unspecified obesity type Serious obesity comorbidity presence: unspecified whether serious comorbidity present Diabetes mellitus E11.9; Z79.4 Diabetes mellitus complication status: without complication Diabetes mellitus medical terminologist insulin use: with senior living use Diabetes mellitus type: type 2
[2019-08-11 15:28] LABS: Glucose Point of Care 100 mg/dL (70-110)
--- NOTE | 2019-08-11 15:33 | PC.NURSE ---
PT HAS REFUSED TO WAKE UP ENOUGH FOR THIS NURSE TO PROPERLY ASSESS NEURO'S, DR DONALDSON INFORMED. WILL ASSESS NEURO'S WHEN PT IS MORE ALERT.
[2019-08-11 20:35] LABS: Glucose Point of Care 110 mg/dL (70-110)
[2019-08-11] MEDS: cefTRIAXone 1,000 MG in sodium chloride 0.9% (plus) 50 ML 100 MG IV (21:39)
[2019-08-11] MEDS: atorvastatin 40 mg Tablet 80 MG PO (21:43)
--- NOTE | 2019-08-11 22:42 | PC.NURSE ---
uncooperative pt refusing to answer questions. pt keeps restating, I want to sleep. unable to check neurological status due to cooperation. pt educated on why the nurse was asking these questions.
[2019-08-12] VITALS (8 sets, daily range): BP systolic 108–140; BP diastolic 67–77; PULSE 71–83; RESP 16–20; TEMP 36.6–36.8; O2SAT 92–95
--- NOTE | 2019-08-12 01:47 | PC.NURSE ---
pt refused to tell me her name and in the beginning, then pt stated her name and her birthday was [birth year], pt reminded her birthday of [birth year]. pt asked where she was and pt stated she was in [place]. pt educated she was in [place] at [facility]. pt continually yells out for help and educated and reeducated on how to use the call light, handheld and bed rail buttons, pt repositioned and changed.
[2019-08-12] MEDS: sodium chloride 0.9% 1,000 ML 75 ML IV (04:26)
[2019-08-12 05:54] LABS: Basophils % 0.4 %; Eosinophils # 0.2 10^3/uL (0.0-0.8); Eosinophils % 2.1 %; Hematocrit 28.2 % (37.0-47.0); Hemoglobin 8.8 g/dL (11.5-15.3); Lymphocytes # 2.8 10^3/uL (0.8-4.8); Mean Corpuscular HGB Conc 31.2 g/dL (30.0-36.0); Mean Corpuscular Hemoglobin 31.9 pg (28.0-34.0); Mean Corpuscular Volume 102.2 fL (81-99); Mean Platelet Volume 11.1 fL (7.4-10.4); Monocytes # 1.2 10^3/uL (0.2-0.9); Monocytes % 14.6 %; Neutrophils # 3.7 10^3/uL (1.8-7.7); Neutrophils % 46.3 %; Nucleated Red Blood Cells % 0 %; Platelet Count 200 10^3/cmm (130-400); Red Blood Count 2.76 10^6/uL (4.1-5.3); Red Cell Distribution Width 15.6 % (12.1-15.1); White Blood Count 8.1 10^3/uL (4.0-10.0)
[2019-08-12 06:20] LABS: Alanine Aminotransferase 7 U/L (0-33); Albumin Level 2.7 g/dL (3.5-5.2); Alkaline Phosphatase 59 IU/L (35-105); Aspartate Amino Transferase 16 U/L (0-32); Blood Urea Nitrogen 24 mg/dL (8-23); Calcium 8.9 mg/dL (8.5-10.5); Carbon Dioxide 21 mmol/L (22-29); Chloride 111 mmol/L (98-107); Creatinine Clr Calc Pharmacy 57.0394; Glomerular Filtration Rate 45.2 mL/min (90-130); Glucose 104 mg/dL (65-115); Osmolality Calculated 293 mOsm/kg (285-295); Sodium 143 mmol/L (136-145); Total Bilirubin 0.2 mg/dL (0.15-1.2); Total Protein 5.7 g/dL (6.6-8.7)
[2019-08-12 06:29] LABS: Glucose Point of Care 106 mg/dL (70-110)
[2019-08-12] MEDS: pantoprazole DR 40 mg Tablet PO (08:17)
[2019-08-12] MEDS: divalproex DR 500 mg Tablet PO ×2 (08:17→17:43)
[2019-08-12] MEDS: OLANZapine 5 mg TABLET PO ×2 (08:17→17:42)
[2019-08-12] MEDS: apixaban 5 mg Tablet PO ×2 (08:17→17:43)
[2019-08-12 10:56] LABS: Glucose Point of Care 123 mg/dL (70-110)
[2019-08-12] MEDS: nystatin powder 15 gm Btl 1 APPLIC TOPICAL ×2 (11:11→17:54)
[2019-08-12] MEDS: HYDROcodone-acetaminophen 5-325 mg Tablet 1 TAB PO (12:06)
--- NOTE | 2019-08-12 12:48 | P.PN_ITS ---
Subjective Subjective: Interval history: Patient no longer requiring one-on-one monitoring, is more awake today, tells me that her date of is March 21 though it is actually March 22, unable to tell me the year she was born, thinks she is 63 rather than 64. Aware she is in [place], requesting to go back home in [place]. Seems to eat mostly at night, does not want to have lunch and did not have breakfast this morning. Urine cultures resulted as pseudomonas aeruginosa and E. coli. care home requesting COVID-19 testing prior to discharge. Medications: Reviewed: Yes Medication Review Details: Active Medications Generic Name Dose Route Start Last Admin Trade Name Freq PRN Reason Stop Dose Admin Acetaminophen 650 mg 08/10/19 01:12 Tylenol PO Q6H PRN Mild/Mod Pain Or Temp >/= 101 Hydrocodone Bitart /Acetaminophen 1 tab 08/10/19 01:18 08/12/19 12:06 [place] 5-325 Mg PO 1 tab Q6H PRN Administration MODERATE PAIN Apixaban 5 mg 08/10/19 09:00 08/12/19 08:17 Eliquis PO 5 mg BID MAMTA Administration Atorvastatin Calci um 80 mg 08/10/19 21:00 08/11/19 21:43 Lipitor PO 80 mg BEDTIME MAMTA Administration Bisacodyl 10 mg 08/10/19 01:18 Dulcolax PO DAILY PRN CONSTIPATION Dextrose 25 ml 08/10/19 01:18 D50w IVP ONCE PRN hypoglycemia prot ocol Protocol Dextrose 50 ml 08/10/19 01:18 D50w IVP PRN PRN hypoglycemia prot ocol Protocol Divalproex Sodium 500 mg 08/10/19 09:00 08/12/19 08:[address] PO 500 mg BID MAMTA Administration Glucagon 1 mg 08/10/19 01:18 Glucagen IM ONCE PRN Adult Acute Hypog lycemia Prot. Protocol Dextrose 500 mls @ 100 mls /hr 08/10/19 01:18 D5w IV ONCE PRN Adult Acute Hypog lycemia Prot Protocol Ceftriaxone Sodium 1,000 mg/ 50 mls @ 100 mls/ hr 08/10/19 21:30 08/11/19 21:39 Sodium Chloride IV 100 mls/hr Q24H MAMTA Administration Protocol Insulin Aspart 0 unit 08/10/19 08:00 08/12/19 12:08 Novolog SUBCUT Not Given WM&BEDTIME [facility] Protocol Nitroglycerin 0.4 mg 08/10/19 01:18 Nitrostat SUBLINGUAL Q5M PRN CHEST PAIN Nystatin 1 applic 08/11/19 09:00 08/12/19 11:11 Nystatin Powder TOPICAL 1 gm BID MAMTA Administration Olanzapine 5 mg 08/10/19 09:00 08/12/19 08:17 Zyprexa PO 5 mg BID MAMTA Administration Ondansetron HCl 4 mg 08/10/19 01:12 Zofran IVP Q8H PRN vomiting, or N/V if npo Pantoprazole Sodiu m 40 mg 08/10/19 09:00 08/12/19 08:17 Protonix PO 40 mg DAILY MAMTA Administration aspirin Allergy (Verified 08/09/19 18:46) Unknown lisinopril Allergy (Verified 08/09/19 18:46) Unknown Penicillins Allergy (Verified 08/09/19 18:46) Unknown Vitals/I&O/Wt Last Vital Signs Temp 98.3 F 08/12/19 11:03 Pulse 74 08/12/19 11:03 Resp 17 08/12/19 11:03 BP 140/71 08/12/19 11:03 Pulse Ox 92 08/12/19 11:03 08/11/19 08/12/19 08/12/19 22:59 06:59 14:59 Intake Total 60 / 1180 1000 / 2180 200 / 200 Balance 60 / 1180 1000 / 2180 200 / 200 Physical Exam Const: COMMON NORMALS: no acute distress and alert GENERAL APPEARANCE: cooperative and comfortable NUTRITIONAL APPEARANCE: obese morbidly obese ORIENTATION/CONSCIOUSNESS: Yes awake, Yes oriented to person and Yes oriented to place OTHER: -laying comfortably in bed HENMT: COMMON NORMALS: normocephalic, atraumatic, hearing grossly normal bilaterally and moist oral mucous membranes HEAD & SCALP: normocephalic and atraumatic TEETH & GINGIVA: Yes edentulous Eye: COMMON NORMALS: Equal, round and reactive pupils present, EOMs intact b ilaterally and conjunctivae normal CONJUNCTIVA: Yes conjunctivae normal PUPIL: Yes Equal, round and reactive pupils present Neck/C-Spine: COMMON NORMALS: full ROM GENERAL: Yes normal visual ins pection and Yes trachea midline OTHER: -short, thick neck Resp: COMMON NORMALS: normal respiratory effort, No retractions, No use of accessory muscles and clear to auscultation bilaterally EFFORT & INSPECTION: Yes able to speak in complete sentences, Yes symmetric chest movement and No tachypneic AUSCULTATION: clear to auscultation bilaterally Cardio: COMMON NORMALS: regular rate, regular rhythm, S1 normal heart sound present, S2 normal heart sound present and No murmurs present (Cardio) RATE: regular rate RHYTHM: regular rhythm HEART SOUNDS: S1 normal heart sound present and S2 normal heart sound present GI: COMMON NORMALS: Normal to inspection, nondistended, normoactive bowel sounds present, Soft to palpation and non-tender INSPECTION: Yes central obesity PALPATION: Yes Soft to palpation : BLADDER/KIDNEY EXAM: No catheter in place Extremity: COMMON NORMALS: normal to inspection, full ROM, no clubbing, cyano sis or edema and no pedal edema Neuro: COMMON NORMALS: moves all extremities, no focal motor deficits and no sensory deficits noted SENSORIUM/ORIENTATION: Yes alert, Yes oriented to person and Yes oriented to place Psych: COMMON NORMALS: mental status grossly normal, Normal thought process pr esent, cooperative and normal affect SPEECH: Yes Other speech symptoms (chronic dysphagia) THOUGHT PROCESS: Normal thought process present Skin: COMMON NORMALS: no jaundice, no petechiae and no mottling GENERAL SKIN EXAM: erythema (breast folds, worse on R) and Excoriation (R-side of pannus, beneath bilateral breasts) Data : 08/12/19 05:40 08/12/19 05:40 Micro: Microbiology 08/09/19 20:00 Urine Culture - Final Urine Catheterized Escherichia coli Pseudomonas aeruginosa A&P Assessment and plan (1) Urinary tract infection: -Failed outpatient treatment with Bactrim, Macrobid -UA strongly indicative of infection -blood cx: prelim negative -urine cx-E.coli and Pseudomonas aeruginosa, sensitivity noted; previous cx from sample obtained at [facility] (08/06) grew E.coli (bactrim resistant) -continue Ceftriaxone; has noted PCN allergy though no reaction noted while on cephalosporin therapy. Therefore will continue treatment with oral cefuroxime (x 10 days) and ciprofloxacin (x 3 days) based on sensitivity profile -no leukocytosis, afebrile, lactic acid-2.1 -continue to monitor vital signs Status: Acute Qualifiers: Urinary tract infection type: acute cystitis Hematuria presence: without hematuria Qualified Code(s): N30.00 - Acute cystitis without hematuria (2) MELY (acute kidney injury): -concern for obstructive uropathy given noted worsening renal function -was on Bactrim but renal impairment present prior to initiation of therapy and was on it for just a few days -continue to monitor renal function; has improved significantly with IVF and t reatment of UTI -continue to monitor urine output, Juarez catheter placement if noted urinary retention, worsening renal function -does have some degree of CKD at baseline, prior baseline Cr was around 0.9 -Cr continues to improve (2.3--->1.2) Status: Acute (3) Metabolic encephalopathy: -noted acute metabolic encephalopathy likely due to acute cystitis and renal impairment -re-orient as needed, fall precautions, sitter -holding seroquel, on zyprexa -appears to be at her baseline currently Status: Resolved (4) Hypertension: -normotensive, continue to monitor vital signs -ARB on hold due to renal impairment, may consider resumption once Cr returns to normal Status: Chronic Qualifiers: Hypertension type: essential hypertension Qualified Code(s): I10 - E ssential (primary) hypertension (5) Vascular dementia: Status: Chronic Qualifiers: Dementia behavioral disturbance: without behavioral disturbance Qualified Code(s): F01.50 - Vascular dementia without behavioral disturbance (6) Obesity: -BMI-53 kg/m2 Status: Chronic Qualifiers: Obesity type: unspecified obesity type Obesity classification: adult class 3 (BMI >= 40) Serious obesity comorbidity presence: unspecified whether serious comorbidity present Body mass index: BMI 50.0-59.9 Qualified Code(s): E66.01 - Morbid (severe) obesity due to excess calories; Z68.43 - Body mass index (BMI) 50.0-59.9, adult (7) Diabetes mellitus: Status: Acute Qualifiers: Diabetes mellitus type: type 2 Diabetes mellitus detention insulin use: with detention use Diabetes mellitus complication status: without complication Qualified Code(s): E11.9 - Type 2 diabetes mellitus without complications; Z79.4 - pals specialist (current) use of insulin Additional A&P Information -has hx of prior CVA with dysphagia, left sided hemiparesis; aspiration precautions, on dysphagia diet -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 COVID-19 testing requested by [facility] prior to return; isolation precautions -Code status: FULL code; has guardian Maryann Coleman Attestations Medical Necessity Statement*: Patient requires hospitalization for continued treatment of UTI, transitioned to oral antibiotics per urine cultures as well as COVID-19 testing has requested by longterm prior to discharge. Time Spent in Patient Care: 16 - 35 minutes (>than 50% of time spent in counselling and/or direct pt care on unit) . Coding Level of Care Code Acute Assembly Adjuster for Chg Fwd Diagnoses Urinary tract infection N30.00 Urinary tract infection type: acute cystitis Hematuria presence: without hematuria MELY (acute kidney injury) N17.9 Metabolic encephalopathy G93.41 Hypertension I10 Hypertension type: essential hypertension Vascular dementia F01.50 Dementia behavioral disturbance: without behavioral disturbance Obesity E66.01; Z68.43 Obesity type: unspecified obesity type Obesity classification: adult class 3 (BMI >= 40) Serious obesity comorbidity presence: unspecified whether serious comorbidity present Body mass index: BMI 50.0-59.9 Diabetes mellitus E11.9; Z79.4 Diabetes mellitus type: type 2 Diabetes mellitus detention insulin use: with detention use Diabetes mellitus complication status: without complication
[2019-08-12 16:53] LABS: Glucose Point of Care 133 mg/dL (70-110)
[2019-08-12] MEDS: cefUROXime 250 mg Tablet PO (17:41)
[2019-08-12] MEDS: quetiapine 100 mg Tablet PO (17:42)
[2019-08-12] MEDS: ciprofloxacin 500 mg Tablet PO (17:42)
[2019-08-12 20:48] LABS: Glucose Point of Care 119 mg/dL (70-110)
[2019-08-13 04:00] VITALS: BP 142/82; PULSE 61; RESP 20; TEMP 37; O2SAT 95
[2019-08-13 06:18] LABS: Glucose Point of Care 87 mg/dL (70-110)
--- NOTE | 2019-08-13 06:52 | PC.NURSE ---
Shift Summary Pt slept all night long, PT was repositioned Q2h, pt had 2 episodes of incontinence, Pt refused PO meds Atorvastatin, PT refused to cooperate with q4h neuros.
[2019-08-13 07:18] VITALS: BP 130/70; PULSE 69; RESP 18; TEMP 36.8; O2SAT 94
[2019-08-13 07:33] VITALS: BP 130/70; PULSE 69; RESP 18; TEMP 36.8
[2019-08-13] MEDS: cefUROXime 250 mg Tablet PO (08:22)
[2019-08-13] MEDS: HYDROcodone-acetaminophen 5-325 mg Tablet 1 TAB PO (08:22)
[2019-08-13] MEDS: quetiapine 100 mg Tablet PO (08:22)
[2019-08-13] MEDS: OLANZapine 5 mg TABLET PO (08:22)
[2019-08-13] MEDS: divalproex DR 500 mg Tablet PO (08:23)
[2019-08-13] MEDS: ciprofloxacin 500 mg Tablet PO (08:23)
[2019-08-13] MEDS: apixaban 5 mg Tablet PO (08:23)
[2019-08-13] MEDS: pantoprazole DR 40 mg Tablet PO (08:23)
--- NOTE | 2019-08-13 09:03 | PM.DCS ---
Discharge Providers Date of Admission: 08/10/19 01:09 Date of Discharge: August 13, 2019 Attending Provider at Admission: Padmini Wilkerson MD Attending Provider at Discharge: Debora Chung MD Diagnoses at Discharge Discharge Diagnosis (1) Urinary tract infection: Status: Acute Problem details: -Failed outpatient treatment with Bactrim, Macrobid -UA strongly indicative of infection -blood cx: prelim negative -urine cx-E.coli and Pseudomonas aeruginosa, sensitivity noted; previous cx from sample obtained at [facility] (08/06) grew E.coli (bactrim resistant) -continue Ceftriaxone; has noted PCN allergy though no reaction noted while on cephalosporin therapy. Therefore will continue treatment with oral cefuroxime (x 10 days) and ciprofloxacin (x 3 days) based on sensitivity profile -no leukocytosis, afebrile, lactic acid-2.1 -continue to monitor vital signs Qualifiers: Urinary tract infection type: acute cystitis Hematuria presence: without hematuria Qualified Code(s): N30.00 - Acute cystitis without hematuria (2) MELY (acute kidney injury): Status: Acute Problem details: -concern for obstructive uropathy given noted worsening renal function -was on Bactrim but renal impairment present prior to initiation of therapy and was on it for just a few days -continue to monitor renal function; has improved significantly with IVF and treatment of UTI -continue to monitor urine output, Juarez catheter placement if noted urinary retention, worsening renal function -does have some degree of CKD at baseline, prior baseline Cr was around 0.9 -Cr continues to improve (2.3--->1.2) (3) Metabolic encephalopathy: Status: Resolved Problem details: -noted acute metabolic encephalopathy likely due to acute cystitis and renal impairment -re-orient as needed, fall precautions, sitter as needed -holding seroquel, on zyprexa -appears to be at her baseline currently (4) Hypertension: Status: Chronic Problem details: -normotensive, continue to monitor vital signs -ARB on hold due to renal impairment, may consider resumption once Cr returns to normal Qualifiers: Hypertension type: essential hypertension Qualified Code(s): I10 - Essential (primary) hypertension (5) Vascular dementia: Status: Chronic Qualifiers: Dementia behavioral disturbance: without behavioral disturbance Qualified Code(s): F01.50 - Vascular dementia without behavioral disturbance (6) Obesity: Status: Chronic Problem details: -BMI-53 kg/m2 Qualifiers: Obesity type: unspecified obesity type Obesity classification: adult class 3 (BMI >= 40) Serious obesity comorbidity presence: unspecified whether serious comorbidity present Body mass index: BMI 50.0-59.9 Qualified Code(s): E66.01 - Morbid (severe) obesity due to excess calories; Z68.43 - Body mass index (BMI) 50.0-59.9, adult (7) Diabetes mellitus: Status: Acute Qualifiers: Diabetes mellitus type: type 2 Diabetes mellitus superintendent terminal insulin use: with long-term use Diabetes mellitus complication status: without complication Qualified Code(s): E11.9 - Type 2 diabetes mellitus without complications; Z79.4 - USP (current) use of insulin Other Information Additional DC diagnoses/information: -has hx of prior CVA with dysphagia, left sided hemiparesis; aspiration precautions, on dysphagia diet -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 She did require one-on-one monitoring due to altered mental status. Her mental status has returned to baseline with treatment of infection. She does have at least mild cognitive impairment at baseline. Urine cultures have grown pseudomonas aeruginosa and E. coli and per sensitivity profile she will continue antibiotic treatment with ciprofloxacin and cefuroxime for appropriate coverage. She had previously been treated with Bactrim and Macrobid. She was noted to have renal impairment likely secondary to obstructive uropathy which has significantly improved with IV fluid hydration. She is incontinent at baseline but has consistently been voiding without difficulty. Losartan was held due to renal impairment but can be resumed for continued blood pressure control. She has consistently been afebrile, hemodynamically stable and on room air. She has required assistance with her meals which [facility] is not new. She will require follow-up with her primary care physician within 1 week or prior SNF. At the request of the [facility] patient had COVID-19 screening which is negative. Clinical suspicion for infection is very low so this was not done on her initial admission. She was noted to have intertrigo particularly in her breast folds and pannus. This area is well kept clean and dry, nystatin applied to the creases and barrier placed to avoid skin rubbing. Excoriation has improved significantly. Would recommend continuation of nystatin powder and barrier application to skin folds to avoid continued moisture related breakdown. Patient is being discharged back to [facility] today. Discharge Summary: -Patient to follow-up with her primary care physician within 1 week or prior SNF. Physical Exam Const: COMMON NORMALS: no acute distress and alert GENERAL APPEARANCE: cooperative and comfortable NUTRITIONAL APPEARANCE: obese morbidly obese ORIENTATION/CONSCIOUSNESS: Yes awake, Yes oriented to person and Yes oriented to place OTHER: -laying comfortably in bed HENMT: COMMON NORMALS: normocephalic, atraumatic, hearing grossly normal bilaterally and moist oral mucous membranes HEAD & SCALP: normocephalic and atraumatic TEETH & GINGIVA: Yes edentulous Eye: COMMON NORMALS: Equal, round and reactive pupils present, EOMs intact bilaterally and conjunctivae normal CONJUNCTIVA: Yes conjunctivae normal PUPIL: Yes Equal, round and reactive pupils present Neck/C-Spine: COMMON NORMALS: full ROM GENERAL: Yes normal visual inspection and Yes trachea midline OTHER: -short, thick neck Resp: COMMON NORMALS: normal respiratory effort, No retractions, No use of accessory muscles and clear to auscultation bilaterally EFFORT & INSPECTION: Yes able to speak in complete sentences, Yes symmetric chest movement and No tachypneic AUSCULTATION: clear to auscultation bilaterally Cardio: COMMON NORMALS: regular rate, regular rhythm, S1 normal heart sound present, S2 normal heart sound present and No murmurs present (Cardio) RATE: regular rate RHYTHM: regular rhythm HEART SOUNDS: S1 normal heart sound present and S2 normal heart sound present GI: COMMON NORMALS: Normal to inspection, nondistended, normoactive bowel sounds present, Soft to palpation and non-tender INSPECTION: Yes central obesity PALPATION: Yes Soft to palpation : BLADDER/KIDNEY EXAM: No catheter in place Extremity: COMMON NORMALS: normal to inspection, full ROM, no clubbing, cyanosis or edema and no pedal edema Neuro: COMMON NORMALS: moves all extremities, no focal motor deficits and no sensory deficits noted SENSORIUM/ORIENTATION: Yes alert, Yes oriented to person and Yes oriented to place OTHER: -does have mild cognitive impairment at baseline Psych: COMMON NORMALS: mental status grossly normal, Normal thought process present, cooperative and normal affect SPEECH: Yes Other speech symptoms (chronic dysphagia) THOUGHT PROCESS: Normal thought process present Skin: COMMON NORMALS: no jaundice, no petechiae and no mottling GENERAL SKIN EXAM: erythema (breast folds, worse on R) and Excoriation (R-side of pannus, beneath bilateral breasts) Discharge Data Data Completed and Pending: Completed Studies During Hospitalization Category Date Time Status CT head wo con* 7 0450 Urgent Cat Scan 08/09/19 19:[address] kidney stone 7 4176 Routine Cat Scan 08/10/19 06:00 Completed XR chest 1V sudeep ble 06342 Urgent Exams 08/09/19 18:33 Completed Pending at discharge Category Date Time Status Blood Culture Sta t Lab 08/09/19 19:10 Results Labs from last 24 hours 08/13/19 08/12/19 08/12/19 06:06 20:44 16:50 POC Glucose 87 119 133 08/12/19 10:53 POC Glucose 123 Vitals: Last Vital Signs Temp 98.3 F 08/13/19 07:33 Pulse 69 08/13/19 07:33 Resp 18 08/13/19 07:33 BP 130/70 08/13/19 07:33 Pulse Ox 94 08/13/19 07:18 Discharge Plan Discharge Patient Disposition: Xfer SNF Condition: Stable Prescriptions: New cefuroxime axetil 250 mg Tablet 250 mg PO BID 10 Days Qty: 20 RF: 0 ciprofloxacin HCl 500 mg Tablet 500 mg PO BID 7 Days Qty: 14 RF: 0 Nyamyc 100,000 unit/gram Powder 1 applic topical BID Qty: 15 RF: 0 Continued permethrin 5 % cream See Rx Instructions .ROUTE .COMPLEX RF: 0 Lantus U-100 Insulin 100 unit/mL Solution 15 unit SUBCUT BEDTIME RF: 0 losartan 25 mg Tablet 25 mg PO DAILY RF: 0 multivitamin Tablet 1 tab PO DAILY RF: 0 atorvastatin 80 mg Tablet 80 mg PO DAILY RF: 0 Depakote 250 mg Tablet,Delayed Release (Dr/Ec) 250 mg PO DAILY RF: 0 [place] 5-325 mg Tablet 1 tab PO Q4H PRN (Reason: Pain) RF: 0 Zyprexa 5 mg Tablet 5 mg PO BID PRN (Reason: Agitation) RF: 0 Depakote 500 mg Tablet,Delayed Release (Dr/Ec) 500 mg PO BID RF: 0 Seroquel 100 mg Tablet 100 mg PO BID RF: 0 Xanax 0.5 mg Tablet 0.5 mg PO Q4H PRN (Reason: Anxiety) RF: 0 Protonix 40 mg Tablet,Delayed Release (Dr/Ec) 40 mg PO DAILY RF: 0 ferrous sulfate 325 mg (65 mg iron) Tablet 325 mg PO EVERY OTHER DAY RF: 0 nitroglycerin 0.4 mg Tablet, Sublingual 0.4 mg SUBLINGUAL Q5M PRN (Reason: Chest Pain) RF: 0 Lexapro 10 mg Tablet 10 mg PO DAILY RF: 0 Lactobacillus acidophilus Tablet,Chewable 1 tab PO DAILY RF: 0 Seroquel 50 mg Tablet 50 mg PO DAILY RF: 0 Victoza 2-Ramiro 0.6 mg/0.1 mL (18 mg/3 mL) Pen Injector 1.2 mg SUBCUT DIRECTED RF: 0 Eliquis 5 mg Tablet 5 mg PO BID RF: 0 Discharge Orders: Discharge Order (Routine); Ordered 08/13/19 Ordered By: Debora Chung Referrals: Sidney Escobar [Other] - 4-7 days (Post hospital discharge follow up. Treated for UTI with urine cultures growing pseudomonas aeruginosa and E. coli. She is discharged on ciprofloxacin and cefuroxime based on urine culture sensitivities.) Discharge Diet: Soft Mechanical Discharge Activity: Resume usual activity Activity Restrictions/Additional Instructions: -Please continue fall precautions -Patient may require assistance with her meals -Please keep skin folds clean and dry, apply nystatin powder to creases and interdry or some kind of barrier to prevent skin from rubbing together Discharge Attestations Time Spent in Discharge Care*: greater than 30 min Specific Discharge Activities: Specific discharge activities: educating patient, discussing with rn case mgr/social workers/dc planners, documenting/other paperwork and evaluating patient/reviewing data Status at Discharge: Cognitive status at discharge: mildly impaired cognition (at baseline), Behavioral status at discharge: cooperative, can be uncooperative and dependent in ADL's, Functional status at discharge: bed bound Overall status at discharge: patient is back to baseline Quality Metrics Clinical Quality Measures During this hospital stay, did patient experience: None Coding Level of Care Code Acute Musculoskeletal Physician for [place] Diagnoses Urinary tract infection N30.00 Urinary tract infection type: acute cystitis Hematuria presence: without hematuria MELY (acute kidney injury) N17.9 Metabolic encephalopathy G93.41 Hypertension I10 Hypertension type: essential hypertension Vascular dementia F01.50 Dementia behavioral disturbance: without behavioral disturbance Obesity E66.01; Z68.43 Obesity type: unspecified obesity type Obesity classification: adult class 3 (BMI >= 40) Serious obesity comorbidity presence: unspecified whether serious comorbidity present Body mass index: BMI 50.0-59.9 Diabetes mellitus E11.9; Z79.4 Diabetes mellitus type: type 2 Diabetes mellitus superintendent terminal insulin use: with long-term use Diabetes mellitus complication status: without complication
[2019-08-13 09:11] VITALS: BP 130/70; PULSE 69; RESP 18; TEMP 36.8
[2019-08-13 10:20] LABS: Coronavirus Lab Test PTC SEE REPORT
--- NOTE | 2019-08-13 11:02 | PC.NURSE ---
Patient returning to [facility], report given to Gail CHAVEZ. Patient's life partner was called. no answer and unable to leave a mes. Patient being trans per [facility]. P
--- NOTE | 2019-08-13 11:06 | PC.NURSE ---
Patient D/c to [facility]. Report given to Gail CHAVEZ. Trans per [facility].
[2019-08-13 11:08] VITALS: BP 130/70; PULSE 69; RESP 18; TEMP 36.8; O2SAT 94
== END 2019-08-13 11:10 | disposition skilled nursing facility (03) | DRG 689 ==
LOC: ER 22:12 → MEDSURG 08-10 07:36
PROVIDERS: Emergency Medicine; Admitting Provider Student in an Organized Health Care Education/Training Program; Visit Provider Family Medicine
DX: N30.00 Acute cystitis without hematuria (principal); G93.41 Metabolic encephalopathy; I69.951 Hemiplegia and hemiparesis following unspecified cerebrovascular disease affecting right dominant side; Z68.43 Body mass index [BMI] 50.0-59.9, adult; N17.9 Acute kidney failure, unspecified; I69.991 Dysphagia following unspecified cerebrovascular disease; R13.10 Dysphagia, unspecified; F01.50 Vascular dementia, unspecified severity, without behavioral disturbance, psychotic disturbance, mood disturbance, and anxiety; Z74.01 Bed confinement status; E11.9 Type 2 diabetes mellitus without complications; Z79.4 Long term (current) use of insulin; F32.9 Major depressive disorder, single episode, unspecified; E66.01 Morbid (severe) obesity due to excess calories; I10 Essential (primary) hypertension; B96.20 Unspecified Escherichia coli [E. coli] as the cause of diseases classified elsewhere; B96.5 Pseudomonas (aeruginosa) (mallei) (pseudomallei) as the cause of diseases classified elsewhere; G56.00 Carpal tunnel syndrome, unspecified upper limb; N13.9 Obstructive and reflux uropathy, unspecified; Z20.828 Contact with and (suspected) exposure to other viral communicable diseases; L30.4 Erythema intertrigo; Z79.891 Long term (current) use of opiate analgesic; Z79.01 Long term (current) use of anticoagulants
CPT/HCPCS: 12345; 36415; 36416; 70450; 71045; 74176; 80053; 81001; 82962; 83605; 84443; 85025; 87040; 87077; 87086; 87186; 87635; 96365; 96366; 96372; 96375; 99282; 99285; J0696; J3490; J7030